=== PATIENT | female | born 1970 | race Caucasian/White ===

== ENCOUNTER 2022-01-22 13:26 | Outpatient (CLI) | payer BC, SELFPAY ==
--- NOTE | 2022-01-22 13:40 | CRLHL7_ITS ---
For Patients: As a result of the Cures Act, medical imaging exams and procedure reports are released immediately into your electronic medical record. You may view this report before your referring provider. If you have questions, please contact your health care provider. BILATERAL SCREENING MAMMOGRAM WITH COMPUTER-AIDED DETECTION TECHNIQUE: BILATERAL CC, MLO and RIGHT implant displaced views were obtained. These mammographic images have been obtained using full-field digital technique. These mammographic images were interpreted with the benefit of computer-aided detection. COMPARISON FILM: 01/16/21, 12/16/19, 10/27/18. FINDINGS: The breasts are almost entirely fatty IMPRESSION: There is no radiographic evidence for malignancy. ASSESSMENT: BI-RADS Category 2: Benign RECOMMENDATION: Routine screening mammogram in 1 year. A lay language report of this examination will be provided to the patient. Ti Camara M.D. Diagnostic Radiologist [email or web address] ANDRA/paula / be/Dictated by: Ti Camara MD @ 01/23/2022 11:48:00 AM COLLIN/Dictated by: Ti Camara MD @ 01/23/2022 11:48:00 AM (Electronically Signed)
== END 2022-01-22 13:27 | disposition home or self-care (01) ==
PROVIDERS: PCP Physician Assistant Medical; Visit Provider Physician Assistant Medical
DX: Z12.31 Encounter for screening mammogram for malignant neoplasm of breast (principal)
CPT/HCPCS: 77063; 77067

== ENCOUNTER 2022-05-17 08:01 | Outpatient (CLI) | payer BC, SELFPAY ==
--- NOTE | 2022-05-17 08:15 | CRLHL7_ITS ---
For Patients: As a result of the Century Cures Act, medical imaging exams and procedure reports are released immediately into your electronic medical record. You may view this report before your referring provider. If you have questions, please contact your health care provider. Indication: Right hip pain Procedure : Informed consent was obtained. The site was marked. Time-out was performed. The skin of the right hip was cleansed with ChloraPrep. A sterile drape was placed. 8 cc of 1 percent lidocaine was administered for superficial anesthesia. Subsequently a 22 gauge spinal needle was introduced into the right hip joint under intermittent fluoroscopic guidance. Injection of 2 cc nonionic Omnipaque 240 contrast confirmed intra-articular location. Subsequently 11 cc of dilute gadolinium were injected. The needle was removed and hemostasis achieved with direct pressure. A dressing was placed. The patient tolerated the procedure well without immediate complication and was immediately sent to MRI for imaging. Total fluoroscopy time 25 seconds. Impression: Successful fluoroscopically guided right hip arthrogram for MRI. Dictated by Ti Camara MD @ 05/17/2022 10:09:11 AM (Electronically Signed)
--- NOTE | 2022-05-17 09:15 | MR_ITS ---
[address] [address] Phone:?[phone] Fax:?[phone] Referring Physician Information: Shiloh Borrego [address] [facility] [address] Phone:?[phone] Fax:?[phone] Patient:Angelina Portillo D.O.B:?1970 Sex:?Female Phone:?[phone] [facility] MRN:?[id number] Exam Date:?05/17/2022 ? EXAM: MR ARTHROGRAM EXAMINATION OF THE RIGHT HIP CLINICAL INFORMATION: Right hip pain. No specific injury. No history of surgery to this area. TECHNICAL INFORMATION: The study was performed following the intraarticular injection of a dilute gadolinium solution. Axial, coronal and sagittal dual-echo imaging of the hip was performed in addition to coronal STIR and coronal T1-weighted images of both hips and the pelvis. T1 sagittal and coronal fat sat were also performed. There are no prior studies available for comparison. INTERPRETATION: Hip joint: The hip joint is distended with contrast material status post arthrogram injection. No discrete loose body is seen. No subchondral edema signal or cystic change. No discrete lesion identified to indicate AVN. No evidence of marrow edema pattern to indicate fracture or stress reaction of the femoral neck. Series 8 image 18 appear to demonstrate a focal linear tear just cranial to the anterior mid equator portion of the labrum. No other labral tear. There is no evidence for a paralabral ganglion cyst. There is no evidence for a right hip joint chondral defect. No other appreciable changes of hip joint chondromalacia. There is no appreciable decreased offset involving the femoral head/neck junction. No convincing evidence for acetabular retroversion. There is a mild appearance of right gluteus minimus tendinopathy. There are mild to moderate changes of soft tissue edema signal alongside the tendon. Intact appearance of the iliopsoas muscle and tendon insertions. No evidence for iliopsoas bursitis. Bones and joints: No evidence for an occult fracture/stress reaction involving the sacrum. No appreciable changes of SI joint arthrosis. There is a postsurgical appearance of a contralateral, left total hip arthroplasty. No evidence for a fracture. No abnormal marrow edema pattern to indicate occult stress reaction or stress fracture. Musculotendinous structures: No evidence of acute musculotendinous injury. Specifically, no evidence of acute muscle tear, hematoma or other edema pattern. Intrapelvic contents: No free fluid seen within the pelvis. There is an approximate 2.8 cm simple appearing cystic right adnexal lesion. No other evidence for an intrapelvic mass. Neurovascular structures: No discrete cyst, mass or other compression upon the portions visualized of sciatic or femoral nerves. CONCLUSION: 1. There is a focal linear tear involving the anterosuperior labrum situated just cranial to the anterior mid equator portion. No adjacent paralabral cyst. 2. No evidence for a right hip joint chondral defect or other appreciable changes of hip joint under malacia. 3. No convincing MRI evidence for morphologic predisposition to femoroacetabular impingement. 4. Mild gluteus minimus insertional tendinopathy. Mild to moderate adjacent soft tissue inflammation as may be related to tendinitis. 5. No occult fracture/stress reaction. There is no evidence for AVN. KES Electronically signed on 05/17/2022 5:06:00 PM by Alvin Dubose M.D.
== END 2022-05-17 08:02 | disposition home or self-care (01) ==
LOC: RAD 08:02
PROVIDERS: PCP Physician Assistant Medical; Visit Provider Physician Assistant Medical
DX: M25.551 Pain in right hip (principal); S43.431A Superior glenoid labrum lesion of right shoulder, initial encounter
CPT/HCPCS: 27093; 73525; 73722; 77002; A9575; Q9966

== ENCOUNTER 2022-08-30 14:15 | Outpatient (RCR) | payer BC, SELFPAY | END 2022-10-28 14:51 | disposition home or self-care (01) | PROVIDERS: PCP Physician Assistant Medical; Visit Provider Physician Assistant Surgical | DX: S73.191A Other sprain of right hip, initial encounter (principal); M25.551 Pain in right hip; Z51.89 Encounter for other specified aftercare | CPT/HCPCS: 97110; 97161 ==

== ENCOUNTER 2023-02-18 17:02 | Outpatient (CLI) | payer BC, SELFPAY ==
--- NOTE | 2023-02-18 17:15 | CRLHL7_ITS ---
For Patients: As a result of the Century Cures Act, medical imaging exams and procedure reports are released immediately into your electronic medical record. You may view this report before your referring provider. If you have questions, please contact your health care provider. BILATERAL SCREENING MAMMOGRAM WITH COMPUTER-AIDED DETECTION TECHNIQUE: CC, MLO and Implant displaced views (RIGHT only) were obtained. These mammographic images have been obtained using full-field digital technique. These mammographic images were interpreted with the benefit of computer-aided detection. COMPARISON FILM: 01/22/22, 01/16/21, 01/12/20. FINDINGS: The breasts are almost entirely fatty IMPRESSION: There is no radiographic evidence for malignancy. ASSESSMENT: BI-RADS Category 1: Negative RECOMMENDATION: Routine screening mammogram in 1 year. A lay language report of this examination will be provided to the patient. Ti Camara M.D. Diagnostic Radiologist [email or web address] COLLIN/Dictated by: Ti Camara MD @ 02/19/2023 12:06:00 PM (Electronically Signed)
== END 2023-02-18 17:03 | disposition home or self-care (01) ==
LOC: MAMMO 17:03
PROVIDERS: PCP Physician Assistant Medical; Visit Provider Physician Assistant Medical
DX: Z12.31 Encounter for screening mammogram for malignant neoplasm of breast (principal)
CPT/HCPCS: 77067

== ENCOUNTER 2024-03-16 18:05 | Outpatient (CLI) | payer BC, SELFPAY ==
--- NOTE | 2024-03-16 18:20 | CRLHL7_ITS ---
For Patients: As a result of the Century Cures Act, medical imaging exams and procedure reports are released immediately into your electronic medical record. You may view this report before your referring provider. If you have questions, please contact your health care provider. BILATERAL SCREENING MAMMOGRAM WITH COMPUTER-AIDED DETECTION TECHNIQUE: CC and MLO of both breasts and implant displaced views of the right breast were obtained. These mammographic images have been obtained using full-field digital technique. These mammographic images were interpreted with the benefit of computer-aided detection. COMPARISON FILM: 02/18/23, 01/22/22, 01/16/21. FINDINGS: The breasts are almost entirely fatty. IMPRESSION: There is no radiographic evidence for malignancy. ASSESSMENT: BI-RADS Category 2: Benign RECOMMENDATION: Routine screening mammogram in 1 year. A lay language report of this examination will be provided to the patient. Ti Camara M.D. Diagnostic Radiologist [email or web address] SP/Dictated by: Ti Camara MD @ 03/17/2024 12:44:00 PM (Electronically Signed)
== END 2024-03-16 18:06 | disposition home or self-care (01) ==
LOC: MAMMO 18:05
PROVIDERS: PCP Physician Assistant Medical; Visit Provider Physician Assistant Medical
DX: Z12.31 Encounter for screening mammogram for malignant neoplasm of breast (principal)
CPT/HCPCS: 77063; 77067

== ENCOUNTER 2025-03-22 16:44 | Outpatient (CLI) | payer BC, SELFPAY ==
--- NOTE | 2025-03-22 17:20 | CRLHL7_ITS ---
For Patients: As a result of the Century Cures Act, medical imaging exams and procedure reports are released immediately into your electronic medical record. You may view this report before your referring provider. If you have questions, please contact your health care provider. INDICATION: BILATERAL SCREENING MAMMOGRAM, ASYMPTOMATIC 55 Y/O FEMALE COMPARISON: 03/16/2024, 01/18/2023, 01/22/2022 TECHNIQUE: Digital mammogram in CC and MLO projections including computer-aided detection (CAD) and tomosynthesis. BREAST COMPOSITION: The breasts are almost entirely fatty. FINDINGS: No suspicious findings. ASSESSMENT: BI-RADS 2 Benign RECOMMENDATION: Annual screening mammogram. A lay language report of this examination will be provided to the patient. Dictated by: Ti Camara MD @ 03/23/2025 12:22:53 (Electronically Signed)
== END 2025-03-22 16:45 | disposition home or self-care (01) ==
LOC: MAMMO 16:46
PROVIDERS: PCP Student in an Organized Health Care Education/Training Program; Visit Provider Student in an Organized Health Care Education/Training Program
DX: Z12.31 Encounter for screening mammogram for malignant neoplasm of breast (principal)
CPT/HCPCS: 77063; 77067